=== PATIENT | male | born 1965 | race Caucasian/White ===

== ENCOUNTER 2021-05-25 14:18 | Observation (INO) | payer OTHER ==
[~2021-05-25] VITALS: Ht 152.4 cm; Wt 104.3 kg
[2021-05-25 14:41] LABS: HEMOGLOBIN 15.9 gm/dl (14.0-17.5); RED BLOOD COUNT 5.09 M/UL (4.20-5.50); WHITE BLOOD COUNT 10.8 K/UL (4.5-11.0)
[2021-05-25 14:59] LABS: BUN/CREATININE RATIO 13 (0-10)
[2021-05-25] MEDS ORDERED: CRESTOR40 MG PO (17:40)
[2021-05-25] MEDS ORDERED: TRAMADOL HCL50 MG PO (17:40)
[2021-05-25] MEDS ORDERED: GABAPENTIN600 MG PO (17:40)
[2021-05-25] MEDS ORDERED: METFORMIN HCL500 MG PO (17:41)
--- NOTE | 2021-05-25 23:46 | NUR ---
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 PT IS OK WITH SON. DESCRIBED THE SCDS AND PURPOSE OF SCDS TO PT, PT SHOOK HEAD AND REPLIED TO MELANIE HE DID NOT WANT THESE AT THIS TIME. ALSO WHEN DOING PAIN SCALE, I WROTE OUT THE PAIN SCALE ON SHEET OF PAPER AND HAD THE PT POINT TO HIS PAIN LEVELS.
[2021-05-26 07:49] LABS: HEMOGLOBIN 14.9 gm/dl (14.0-17.5); RED BLOOD COUNT 5.03 M/UL (4.20-5.50); WHITE BLOOD COUNT 12.2 K/UL (4.5-11.0)
[2021-05-26 08:08] LABS: BUN/CREATININE RATIO 11 (0-10)
[2021-05-26] MEDS ORDERED: TYLENOL 8 HOUR650 MG PO (09:15)
== END 2021-05-26 12:19 | disposition home or self-care (01) ==
LOC: ER1 14:18 → CDU 16:59 → MED SURG 4 18:20
PROVIDERS: Emergency Medicine; Physician Assistant; ADMIT Internal Medicine
DX: S43.51XA Sprain of right acromioclavicular joint, initial encounter (principal); W11.XXXA Fall on and from ladder, initial encounter; I10 Essential (primary) hypertension; E78.5 Hyperlipidemia, unspecified; E11.9 Type 2 diabetes mellitus without complications; G89.29 Other chronic pain; M54.9 Dorsalgia, unspecified; H91.90 Unspecified hearing loss, unspecified ear; F17.200 Nicotine dependence, unspecified, uncomplicated; Z20.822 Contact with and (suspected) exposure to COVID-19; Z79.84 Long term (current) use of oral hypoglycemic drugs; Z79.891 Long term (current) use of opiate analgesic
CPT/HCPCS: 12001; 70450; 71045; 71100; 72125; 72128; 72131; 72170; 73030; 80048; 80053; 82550; 82553; 83605; 83874; 84484; 85025; 85610; 85730; 86850; 86900; 86901; 90714; 93005; 99284; G0378; G0480; U0002

== ENCOUNTER → 2021-07-04 | Outpatient (CLI) | payer OTHER ==
[~2021-07-04] MED LIST: CRESTOR40 MG PO; GABAPENTIN600 MG PO; METFORMIN HCL500 MG PO; TRAMADOL HCL50 MG PO; TYLENOL 8 HOUR650 MG PO
== END ==
LOC: EMI 06-25 11:15
DX: M25.511 Pain in right shoulder (principal); M67.813 Other specified disorders of tendon, right shoulder
CPT/HCPCS: 73221